=== PATIENT | male | born 1960 | race Caucasian/White ===

== ENCOUNTER 2019-04-14 09:30 | Emergency (ER) | payer OTHER ==
[2019-04-14] MEDS: LIDOCAINE 1% (MPF) 5 ML VIAL INJ (10:03)
== END 2019-04-14 11:34 | disposition home or self-care (01) ==
LOC: FTE 09:30
DX: L02.416 Cutaneous abscess of left lower limb (principal); F17.210 Nicotine dependence, cigarettes, uncomplicated
CPT/HCPCS: 10060; 99283-25